=== PATIENT | female | born 1965 | race Caucasian/White ===

== ENCOUNTER 2019-02-12 08:56 | Emergency (ER) | payer OTHER ==
[~2019-02-12] VITALS: Ht 160 cm; Wt 61.7 kg
== END 2019-02-12 10:39 | disposition home or self-care (01) ==
LOC: ER 08:56
DX: H66.93 Otitis media, unspecified, bilateral (principal)

== ENCOUNTER 2019-07-20 14:56 | Emergency (ER) | payer OTHER ==
[~2019-07-20] VITALS: Ht 160 cm; Wt 61.2 kg
== END 2019-07-20 22:23 | disposition home or self-care (01) ==
LOC: ER 14:56
DX: M54.16 Radiculopathy, lumbar region (principal); K80.50 Calculus of bile duct without cholangitis or cholecystitis without obstruction